=== PATIENT | female | born 1980 | race Caucasian/White ===

== ENCOUNTER 2020-04-28 02:26 | Observation (INO) ==
[2020-04-28] MEDS ORDERED: Perflutren Lipid Microsphere 1.3 ML in 0.9 % Sodium Chloride 8.7 ML IVP PRN (09:38)
[2020-04-28] MEDS ORDERED: Naloxone 0.4 MG/ML INJ IVP PRN (09:38)
[2020-04-28] MEDS ORDERED: Ipratropium/Albuterol Neb 3 ML IH PRN (09:46)
[2020-04-28] MEDS: Acetaminophen 325 MG TABLET PO PRN ×2 (10:49→18:24)
[2020-04-28] MEDS: Ondansetron 4 MG/2 ML VIAL IVP PRN ×2 (10:49→19:42)
[2020-04-28] MEDS: Piperacillin/Tazobactam 3.375 GM in 0.9 % Sodium Chloride Mini Bag 100 ML IVPB SCH ×2 (10:50→19:40)
[2020-04-28 10:54] LABS: Basophils % 0.1 %; Eosinophils % 0.1 %; Hematocrit 36.7 % (35.3-44.9); Hemoglobin 11.4 g/dL (11.5-15.4); Immature Granulocytes % 0.5 % (0-4); Lymphocytes % 6.4 %; Mean Corpuscular HGB Conc 31.1 g/dL (31.6-35.5); Mean Corpuscular Hemoglobin 28.1 pg (28.0-33.3); Mean Corpuscular Volume 90.4 fL (83.0-100.0); Monocytes # 0.7 K/mcL (0.0-1.3); Monocytes % 4.8 %; Neutrophils # 13.5 K/mcL (1.6-8.9); Platelet Count 189 K/mcL (140-400); Red Blood Count 4.06 M/mcL (3.82-4.97); Red Cell Distribution Width 14.4 % (11.5-14.5); Segmented Neutrophils % 88.1 %; White Blood Count 15.4 K/mcL (4.3-11.1)
[2020-04-28 11:12] LABS: BUN/Creatinine Ratio 28 (6-26); Blood Urea Nitrogen 15 mg/dL (6-20); Calcium 8.6 mg/dL (8.6-10.3); Carbon Dioxide 30 mEq/L (23-29); Chloride 100 mEq/L (98-107); Glucose 124 mg/dL (70-105); Osmolality,Calculated 288 (280-300); Phosphorous 3.6 mg/dL (2.7-4.5); Potassium 3.3 mEq/L (3.5-5.1); Sodium 138 mEq/L (136-145); eGFR For African Americans > 60 (> 60); eGFR For Non-African Americans > 60 (> 60)
[2020-04-28] MEDS: Vancomycin 1,500 MG/265 ML IV.SOLN IVPB SCH (16:11)
[2020-04-28] MEDS: predniSONE 10 MG TABLET PO SCH (20:30)
[2020-04-29 01:36] LABS: Mean Corpuscular HGB Conc 30.6 g/dL (31.6-35.5); Mean Corpuscular Hemoglobin 28.4 pg (28.0-33.3); Mean Platelet Volume 10.3 fL (9.4-12.4); Platelet Count 194 K/mcL (140-400); Red Blood Count 3.87 M/mcL (3.82-4.97); Red Cell Distribution Width 14.4 % (11.5-14.5); White Blood Count 10.2 K/mcL (4.3-11.1)
[2020-04-29 01:54] LABS: BUN/Creatinine Ratio 24 (6-26); Blood Urea Nitrogen 13 mg/dL (6-20); Calcium 8.9 mg/dL (8.6-10.3); Carbon Dioxide 30 mEq/L (23-29); Chloride 102 mEq/L (98-107); Glucose 126 mg/dL (70-105); Osmolality,Calculated 290 (280-300); Potassium 3.3 mEq/L (3.5-5.1); Sodium 139 mEq/L (136-145); eGFR For African Americans > 60 (> 60); eGFR For Non-African Americans > 60 (> 60)
[2020-04-29] MEDS: Vancomycin 1,500 MG/265 ML IV.SOLN IVPB SCH (02:28)
[2020-04-29] MEDS: Piperacillin/Tazobactam 3.375 GM in 0.9 % Sodium Chloride Mini Bag 100 ML IVPB SCH ×2 (02:28→08:58)
[2020-04-29] MEDS: Acetaminophen 325 MG TABLET PO PRN (02:35)
[2020-04-29] MEDS: Ondansetron 4 MG/2 ML VIAL IVP PRN (04:06)
[2020-04-29] MEDS ORDERED: *HR* Enoxaparin 40 MG/0.4 ML SYRINGE SQ SCH ×4 (06:00→21:00)
[2020-04-29] MEDS: predniSONE 10 MG TABLET PO SCH (08:49)
[2020-04-29] MEDS: Budesonide/Formoterol 80/4.5 1 PUFF INH IH SCH (10:10)
[2020-04-29] MEDS ORDERED: Cholecalciferol (D-3) 1,000 UNIT (25MCG) TABLET PO SCH (10:45)
[2020-04-29] MEDS ORDERED: Tiotropium 10 INH DOSE IH SCH (10:45)
[2020-04-29] MEDS ORDERED: hydroCHLOROthiazide 25 MG TABLET PO SCH (10:45)
[2020-04-29 15:31] VITALS: BP 102/66
[2020-04-29] MEDS ORDERED: Sulfamethoxazole/Trimeth DS 1 EACH TABLET PO SCH (21:00)
== END 2020-04-29 17:29 | disposition home or self-care (01) ==
LOC: 2ANU → SUATTDRO 09:29
PROVIDERS: ADMIT Internal Medicine; ATTEND Internal Medicine